=== PATIENT | male | born 1990 | race Two or more races ===

== ENCOUNTER 2025-03-08 18:14 | Emergency (ER) | payer SELFPAY ==
[2025-03-08 18:15] VITALS: BP 130/77; PULSE 80; RESP 19; TEMP 36.6; O2SAT 98
[2025-03-08 18:23] VITALS: BMI 25.0
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
== END 2025-03-08 19:25 | disposition home or self-care (01) ==
LOC: SERX 19:27
PROVIDERS: Emergency Provider Emergency Medicine
DX: Z02.89 Encounter for other administrative examinations (principal); S80.212A Abrasion, left knee, initial encounter; S80.211A Abrasion, right knee, initial encounter; Y35.833A Legal intervention involving a conducted energy device, suspect injured, initial encounter
CPT/HCPCS: 99282